=== PATIENT | male | born 1980 | race Caucasian/White ===

== ENCOUNTER 2017-03-01 15:55 | Emergency (ER) | payer BC ==
[2017-03-01] MEDS ORDERED: Ibuprofen 800 MG TAB ONE (16:34)
--- NOTE | 2017-03-01 18:55 | RAD ---
FOUR VIEWS LEFT THUMB: 03/01/17 AP, lateral and both oblique views left thumb is obtained. Images demonstrate an area of radiolucency involving the distal aspect distal phalanx first digit lef t hand. This is concerning for an acute fracture in the sagittal plane of the distal phalanx first di git. No other acute abnormality seen. IMPRESSION: Acute fracture distal phalanx first digit left hand. POS: BLOSSOM
== END 2017-03-01 18:04 | disposition home or self-care (01) ==
LOC: MADERS 15:55
DX: S67.01XA Crushing injury of right thumb, initial encounter (principal); S62.524A Nondisplaced fracture of distal phalanx of right thumb, initial encounter for closed fracture; F32.9 Major depressive disorder, single episode, unspecified; Z79.899 Other long term (current) drug therapy; W22.8XXA Striking against or struck by other objects, initial encounter

== ENCOUNTER 2017-03-10 17:41 | Emergency (ER) | payer BC | END 2017-03-10 18:59 | disposition home or self-care (01) | LOC: MADERS 17:41 | DX: J11.1 Influenza due to unidentified influenza virus with other respiratory manifestations (principal) | CPT/HCPCS: 99283 ==

== ENCOUNTER 2017-12-28 10:45 | Emergency (ER) | payer BC ==
--- NOTE | 2017-12-28 11:39 | RAD ---
RIGHT KNEE FOUR VIEWS: History: Knee pain, swelling. FINDINGS: No signs of fracture, dislocation, or joint effusion. Tiny patellofemoral spurs are present. IMPRESSION: Minimal arthritic changes of the knee. POS: BLOSSOM
== END 2017-12-28 11:50 | disposition home or self-care (01) ==
LOC: MADERS 10:45
DX: S83.91XA Sprain of unspecified site of right knee, initial encounter (principal); F32.9 Major depressive disorder, single episode, unspecified; X58.XXXA Exposure to other specified factors, initial encounter

== ENCOUNTER 2020-03-27 04:29 | Emergency (ER) | payer BC ==
--- NOTE | 2020-03-27 08:04 | RAD ---
LEFT FOOT 3 VIEWS: HISTORY: Injury, lateral left foot pain FINDINGS: There is an incomplete and nondisplaced fracture involving the proximal metaphysis of the f ifth metatarsal.
== END 2020-03-27 05:40 | disposition home or self-care (01) ==
LOC: MADERS 04:29
DX: S92.352A Displaced fracture of fifth metatarsal bone, left foot, initial encounter for closed fracture (principal); Z79.899 Other long term (current) drug therapy; X50.1XXA Overexertion from prolonged static or awkward postures, initial encounter
CPT/HCPCS: 28470

== ENCOUNTER 2022-09-06 04:54 | Emergency (ER) | payer BC, OTHER ==
[2022-09-06] MEDS ORDERED: Boostrix 0.5 ML (Tdap) VIAL (>/=7 yrs of age) ONE (05:28)
[2022-09-06] MEDS ORDERED: Lidocaine 1% w/Epinephrine 1:100K 20 ML VIAL ONE (05:28)
[2022-09-06] MEDS ORDERED: Bacitracin 1 PK ONE (05:28)
[2022-09-06] MEDS ORDERED: Cephalexin 250 MG CAP ONE (05:56)
== END 2022-09-06 06:00 | disposition home or self-care (01) ==
LOC: MADERS 04:54
DX: S51.812A Laceration without foreign body of left forearm, initial encounter (principal); Z23 Encounter for immunization; W26.9XXA Contact with unspecified sharp object(s), initial encounter
CPT/HCPCS: 12002; 90471; 90715

== ENCOUNTER 2024-03-05 04:08 | Emergency (ER) | payer BC, OTHER ==
[2024-03-05 04:37] LABS: #Basophils 0.1 thou/uL (0.0-0.2); #Eosinophils 0.1 thou/uL (0.0-0.7); #Lymphocytes 1.8 thou/uL (1.20-3.40); #Monocytes 0.6 thou/uL (0.11-0.59); #Neutrophils 6.3 thou/uL (1.40-6.50); %Basophils 0.8 % (0.0-1.0); %Eosinophils 0.9 % (0.0-10.0); %Lymphocytes 20.5 % (21.0-51.0); %Monocytes 6.6 % (0.0-10.0); %Neutrophils 71.3 % (42.0-75.0); Hematocrit 44.3 % (42.0-52.0); Hemoglobin 14.8 g/dL (14.0-18.0); Mean Corpuscular HGB CONC 33.5 g/dL (32.0-36.0); Mean Corpuscular Hemoglobin 30.5 pg (27.0-31.0); Mean Corpuscular Volume 91.2 fl (78.0-98.0); Mean Platelet Volume 9.1 fL (7.4-10.4); Platelet Count 225 10x3/uL (130-400); RBC Distribution Width 10.9 % (11.5-14.5); Red Blood Cell (RBC) Count 4.86 mill/uL (4.70-6.10); White Blood Cell (WBC) Count 8.9 10x3/uL (4.8-10.8)
[2024-03-05] MEDS ORDERED: Aspirin Chewable 81 MG TAB ONE (04:47)
[2024-03-05 04:59] LABS: Troponin I Less than 0.010 ng/mL (< 0.028)
[2024-03-05 05:02] LABS: ALT (SGPT) 22 U/L (8-55); AST (SGOT) 17 U/L (5-34); Albumin 4.6 g/dL (3.5-5.0); Alkaline Phosphatase 66 U/L (40-110); Anion Gap 15 mmol/L (10-20); BUN (Urea Nitrogen) 23 mg/dL (8.9-20.6); Bilirubin, Total 0.8 mg/dL (0.2-1.2); Calc. Creatinine Clearance 0 mL/min (70-130); Calcium 9.3 mg/dL (7.8-10.44); Carbon Dioxide 21 mmol/L (22-29); Chloride 107 mmol/L (98-107); Estimated GFR 109; Globulin 1.9 g/dL (2.4-3.5); Glucose 132 mg/dL (70-105); Potassium 3.8 mmol/L (3.5-5.1); Protein, Total 6.5 g/dL (6.0-8.3); Sodium 139 mmol/L (136-145)
[2024-03-05] MEDS ORDERED: Ketorolac Tromethamine 30 MG (1 mL) VIAL ONE (05:15)
[2024-03-05] MEDS ORDERED: Sodium Chloride 0.9% 1,000 ML ONE (05:15)
[2024-03-06] MEDS ORDERED: Iopamidol 370 76% 100 ML VIAL ONE (09:00)
== END 2024-03-05 06:48 | disposition home or self-care (01) ==
LOC: MADERS 04:08
DX: R07.82 Intercostal pain (principal)
CPT/HCPCS: 36415; 71046; 71275; 74174; 80053; 83880; 84484; 85025; 93005; 94760; 96374; J1885; J7030